=== PATIENT | female | born 1950 | race Caucasian/White ===

== ENCOUNTER 2018-10-14 01:25 | Inpatient (IN) | payer MEDICARE, OTHER ==
[~2018-10-14] VITALS: Ht 149.9 cm; Wt 55.2 kg
[2018-10-14] VITALS (7 sets, daily range): BP systolic 107–154; BP diastolic 60–85
[~2018-10-14 01:25] MED LIST: ASPI-556 PO; ATOR20TA86 PO; CLOZ100T31 PO; GABA-531 PO; OMEP20 PO
[2018-10-14] MEDS ORDERED: IPRATROPIUM BROMIDE 0.5 MG/2.5 ML NEB SOLUTION NEB PRN (07:00)
[2018-10-14] MEDS ORDERED: ONDANSETRON HCL 4 MG/2 ML VIAL IVP PRN (07:00)
[2018-10-14] MEDS ORDERED: HYDROCODONE/ACETAMINOPHEN 5-325 MG TABLET PO PRN (07:00)
[2018-10-14] MEDS ORDERED: MAGNESIUM HYDROXIDE SUSPENSION 30 ML UDCUP PO PRN (07:00)
[2018-10-14] MEDS ORDERED: ALBUTEROL SULFATE 2.5 MG/0.5 ML NEB SOLUTION NEB PRN (07:00)
[2018-10-14] MEDS ORDERED: ACETAMINOPHEN 325 MG TABLET PO PRN (07:00)
[2018-10-14 07:38] LABS: BASOPHILS % (AUTO) 1.1 % (0.0-2.0); EOSINOPHILS % (AUTO) 2.2 % (1.0-6.0); HEMATOCRIT 38.4 % (36-46); HEMOGLOBIN 12.9 g/dL (12.0-16.0); LYMPHOCYTES # (AUTO) 1.9 K/uL (1.0-4.8); MEAN CORPUSCULAR HEMOGLOBIN 31.3 pg (26.0-34.0); MEAN CORPUSCULAR HGB CONC 33.5 G/dL (31.0-37.0); MEAN CORPUSCULAR VOLUME 93 fL (80-100); MONOCYTES # (AUTO) 0.4 K/uL (0.1-1.0); MONOCYTES % (AUTO) 5.9 % (2.0-9.0); NEUTROPHILS # (AUTO) 3.5 K/uL (1.8-7.7); NEUTROPHILS % (AUTO) 58.8 % (40.0-70.0); PLATELET COUNT (AUTO) 239 K/uL (150-450); RED BLOOD CELL COUNT(AUTO) 4.12 MIL/uL (4.00-5.20); RED CELL DISTRIBUTION WIDTH 13.5 % (11.5-14.5)
[2018-10-14 08:21] LABS: BILIRUBIN,TOTAL 0.2 mg/dL (0.1-1.0); CALCIUM, TOTAL 9.4 mg/dL (8.8-10.5); CREATININE 1.52 mg/dL (0.60-1.30); MAGNESIUM 2.2 mg/dL (1.80-2.40); PHOSPHORUS 3.6 mg/dL (2.5-4.9); POTASSIUM 4.4 mmol/L (3.5-5.1); TOTAL PROTEIN, SERUM 6.5 g/dL (6.4-8.2)
[2018-10-14] MEDS: OMEPRAZOLE 20 MG CAPSULE PO SCH ×4 (08:56→21:37)
[2018-10-14] MEDS: ATORVASTATIN CALCIUM 20 MG TABLET PO SCH (08:56)
[2018-10-14] MEDS: FAMOTIDINE 20 MG TABLET PO SCH (08:56)
[2018-10-14] MEDS: GABAPENTIN 300 MG CAPSULE PO SCH ×4 (08:56→21:37)
[2018-10-14] MEDS: ASPIRIN 81 MG EC TABLET PO SCH (08:56)
[2018-10-14] MEDS: HEPARIN SODIUM,PORCINE 5,000 UNITS/ML VIAL SQ SCH ×3 (08:57→21:37)
[2018-10-14] MEDS: DEXTROSE 5%-0.45% SODIUM CHL 1,000 ML IV SCH ×2 (14:47→21:38)
[2018-10-15 04:18] VITALS: BP 104/65
[2018-10-15] MEDS: DEXTROSE 5%-0.45% SODIUM CHL 1,000 ML IV SCH ×3 (05:19→23:09)
[2018-10-15 06:30] LABS: BASOPHILS % (AUTO) 0.7 % (0.0-2.0); EOSINOPHILS % (AUTO) 1.9 % (1.0-6.0); HEMATOCRIT 36.2 % (36-46); LYMPHOCYTES % (AUTO) 31.8 % (22.0-44.0); MEAN CORPUSCULAR HEMOGLOBIN 31.1 pg (26.0-34.0); MEAN CORPUSCULAR HGB CONC 33.2 G/dL (31.0-37.0); MEAN CORPUSCULAR VOLUME 94 fL (80-100); MONOCYTES # (AUTO) 0.4 K/uL (0.1-1.0); MONOCYTES % (AUTO) 6.4 % (2.0-9.0); NEUTROPHILS # (AUTO) 3.6 K/uL (1.8-7.7); NEUTROPHILS % (AUTO) 59.2 % (40.0-70.0); PLATELET COUNT (AUTO) 234 K/uL (150-450); RED BLOOD CELL COUNT(AUTO) 3.88 MIL/uL (4.00-5.20); RED CELL DISTRIBUTION WIDTH 13.3 % (11.5-14.5)
[2018-10-15 06:46] LABS: ALBUMIN 2.7 g/dL (3.4-5.0); BILIRUBIN,TOTAL 0.2 mg/dL (0.1-1.0); CALCIUM, TOTAL 8.9 mg/dL (8.8-10.5); CREATININE 1.56 mg/dL (0.60-1.30); MAGNESIUM 2.1 mg/dL (1.80-2.40); PHOSPHORUS 3.6 mg/dL (2.5-4.9)
[2018-10-15] MEDS: GABAPENTIN 300 MG CAPSULE PO SCH ×4 (08:08→20:09)
[2018-10-15] MEDS: ATORVASTATIN CALCIUM 20 MG TABLET PO SCH (08:08)
[2018-10-15] MEDS: OMEPRAZOLE 20 MG CAPSULE PO SCH ×4 (08:08→20:09)
[2018-10-15] MEDS: HEPARIN SODIUM,PORCINE 5,000 UNITS/ML VIAL SQ SCH ×2 (08:09→20:13)
[2018-10-15] MEDS: FAMOTIDINE 20 MG TABLET PO SCH (08:09)
[2018-10-15] MEDS: ASPIRIN 81 MG EC TABLET PO SCH (08:09)
[2018-10-15 08:16] VITALS: BP 114/58
[2018-10-15 11:44] VITALS: BP 104/51
[2018-10-15 15:38] VITALS: BP 102/57
[2018-10-15 20:12] VITALS: BP 134/78
[2018-10-15 23:25] VITALS: BP 120/64
[2018-10-16 05:15] VITALS: BP 124/74
[2018-10-16 06:03] LABS: CALCIUM, TOTAL 9.1 mg/dL (8.8-10.5); CREATININE 1.5 mg/dL (0.60-1.30); POTASSIUM 4.4 mmol/L (3.5-5.1)
[2018-10-16] MEDS: DEXTROSE 5%-0.45% SODIUM CHL 1,000 ML IV SCH ×2 (06:47→14:47)
[2018-10-16 07:35] VITALS: BP 152/83
[2018-10-16] MEDS: OMEPRAZOLE 20 MG CAPSULE PO SCH ×4 (08:46→20:41)
[2018-10-16] MEDS: ASPIRIN 81 MG EC TABLET PO SCH (08:46)
[2018-10-16] MEDS: GABAPENTIN 300 MG CAPSULE PO SCH ×4 (08:46→20:41)
[2018-10-16] MEDS: FAMOTIDINE 20 MG TABLET PO SCH (08:46)
[2018-10-16] MEDS: ATORVASTATIN CALCIUM 20 MG TABLET PO SCH (08:46)
[2018-10-16] MEDS: HEPARIN SODIUM,PORCINE 5,000 UNITS/ML VIAL SQ SCH ×2 (08:49→20:41)
[2018-10-16 11:10] VITALS: BP 140/63
[2018-10-16 15:15] VITALS: BP 145/73
[2018-10-16 19:47] VITALS: BP 115/56
[2018-10-16 23:40] VITALS: BP 115/69
[2018-10-17 04:59] VITALS: BP 98/65
[2018-10-17 07:48] VITALS: BP 97/63
[2018-10-17] MEDS: OMEPRAZOLE 20 MG CAPSULE PO SCH ×4 (09:06→20:46)
[2018-10-17] MEDS: GABAPENTIN 300 MG CAPSULE PO SCH ×4 (09:06→20:46)
[2018-10-17] MEDS: ATORVASTATIN CALCIUM 20 MG TABLET PO SCH (09:06)
[2018-10-17] MEDS: FAMOTIDINE 20 MG TABLET PO SCH (09:06)
[2018-10-17] MEDS: ASPIRIN 81 MG EC TABLET PO SCH (09:06)
[2018-10-17] MEDS: HEPARIN SODIUM,PORCINE 5,000 UNITS/ML VIAL SQ SCH ×2 (09:06→20:46)
[2018-10-17 11:39] VITALS: BP 143/75
[2018-10-17 15:30] VITALS: BP 122/63
[2018-10-17 20:23] VITALS: BP 145/76
[2018-10-18] VITALS (7 sets, daily range): BP systolic 90–151; BP diastolic 54–78
[2018-10-18] MEDS: GABAPENTIN 300 MG CAPSULE PO SCH ×3 (08:03→16:19)
[2018-10-18] MEDS: ATORVASTATIN CALCIUM 20 MG TABLET PO SCH (08:03)
[2018-10-18] MEDS: FAMOTIDINE 20 MG TABLET PO SCH (08:03)
[2018-10-18] MEDS: ASPIRIN 81 MG EC TABLET PO SCH (08:03)
[2018-10-18] MEDS: HEPARIN SODIUM,PORCINE 5,000 UNITS/ML VIAL SQ SCH ×2 (08:03→20:38)
[2018-10-18] MEDS: OMEPRAZOLE 20 MG CAPSULE PO SCH ×4 (08:03→20:38)
[2018-10-18] MEDS: CloZAPine 100 MG TABLET PO SCH (20:38)
[2018-10-19] VITALS (7 sets, daily range): BP systolic 80–118; BP diastolic 42–63
[2018-10-19] MEDS ORDERED: SODIUM CHLORIDE 0.9% 500 ML IV ONE (05:00)
[2018-10-19] MEDS: GABAPENTIN 300 MG CAPSULE PO SCH ×3 (08:30→17:30)
[2018-10-19] MEDS: HEPARIN SODIUM,PORCINE 5,000 UNITS/ML VIAL SQ SCH ×2 (08:31→21:32)
[2018-10-19] MEDS: FAMOTIDINE 20 MG TABLET PO SCH (08:31)
[2018-10-19] MEDS: ASPIRIN 81 MG EC TABLET PO SCH (08:31)
[2018-10-19] MEDS: OMEPRAZOLE 20 MG CAPSULE PO SCH ×4 (08:31→21:32)
[2018-10-19] MEDS: ATORVASTATIN CALCIUM 20 MG TABLET PO SCH (08:32)
[2018-10-19] MEDS: CloZAPine 100 MG TABLET PO SCH ×2 (08:32→21:32)
[2018-10-20 05:21] VITALS: BP 115/72
[2018-10-20] MEDS: GABAPENTIN 300 MG CAPSULE PO SCH ×3 (06:33→16:46)
[2018-10-20 07:57] VITALS: BP 139/79
[2018-10-20] MEDS: FAMOTIDINE 20 MG TABLET PO SCH (08:36)
[2018-10-20] MEDS: ATORVASTATIN CALCIUM 20 MG TABLET PO SCH (08:36)
[2018-10-20] MEDS: OMEPRAZOLE 20 MG CAPSULE PO SCH ×3 (08:36→16:46)
[2018-10-20] MEDS: ASPIRIN 81 MG EC TABLET PO SCH (08:36)
[2018-10-20] MEDS: CloZAPine 100 MG TABLET PO SCH (08:36)
[2018-10-20 11:37] VITALS: BP 124/69
[2018-10-20 15:08] VITALS: BP 114/66
[2018-10-20] MEDS ORDERED: CLOZ100T31 PO (15:55)
== END 2018-10-20 17:25 | disposition home or self-care (01) | DRG 640 ==
LOC: EDSTATUS 01:49 → 6N 01:59 → 4E 10-19 19:57
PROVIDERS: ADMIT Internal Medicine; ATTEND Internal Medicine
DX: E87.0 Hyperosmolality and hypernatremia (principal); N17.0 Acute kidney failure with tubular necrosis; I12.9 Hypertensive chronic kidney disease with stage 1 through stage 4 chronic kidney disease, or unspecified chronic kidney disease; N18.9 Chronic kidney disease, unspecified; G47.00 Insomnia, unspecified; K59.00 Constipation, unspecified; F41.9 Anxiety disorder, unspecified; F25.1 Schizoaffective disorder, depressive type
CPT/HCPCS: 76770; 83735; 84100; G0378; J1644

== ENCOUNTER 2020-03-20 22:20 | Inpatient (IN) | payer MEDICARE, OTHER ==
[~2020-03-20] VITALS: Ht 162.6 cm; Wt 56.5 kg
[~2020-03-20 22:20] MED LIST changes: +GABA-1181 PO; -GABA-531 PO
[2020-03-20] MEDS ORDERED: AZITHROMYCIN 500 MG/NS 250 ML IV ONE (23:45)
[2020-03-20] MEDS ORDERED: CefTRIAXone 1 GM/DEXTROSE 50 ML IV ONE (23:45)
[2020-03-20] MEDS ORDERED: 0.9% SODIUM CHLORIDE 10 ML SYRINGE IVP PRN (23:45)
[2020-03-21 00:15] LABS: HEMATOCRIT 39.1 % (36-46); HEMOGLOBIN 12.7 g/dL (12.0-16.0); MEAN CORPUSCULAR VOLUME 92 fL (80-100); RED BLOOD CELL COUNT(AUTO) 4.26 MIL/uL (4.00-5.20)
[2020-03-21 00:16] LABS: BASOPHILS % (AUTO) 0.4 % (0.0-2.0); EOSINOPHILS % (AUTO) 1.8 % (1.0-6.0); LYMPHOCYTES % (AUTO) 13.6 % (22.0-44.0); MEAN CORPUSCULAR HEMOGLOBIN 29.9 pg (26.0-34.0); MEAN CORPUSCULAR HGB CONC 32.6 G/dL (31.0-37.0); MONOCYTES # (AUTO) 0.2 K/uL (0.1-1.0); MONOCYTES % (AUTO) 2.2 % (2.0-9.0); NEUTROPHILS # (AUTO) 6.2 K/uL (1.8-7.7); PLATELET COUNT (AUTO) 186 K/uL (150-450); RED CELL DISTRIBUTION WIDTH 13.7 % (11.5-14.5)
[2020-03-21 00:43] LABS: INR 0.9 (0.9-1.1); PROTHROMBIN TIME 9.7 SEC (9.4-11.6)
[2020-03-21 00:48] LABS: CALCIUM, TOTAL 8.8 mg/dL (8.8-10.5); CREATININE 1.6 mg/dL (0.60-1.30); POTASSIUM 4.6 mmol/L (3.5-5.1)
[2020-03-21 00:58] LABS: LACTIC ACID 1.4 mmol/L (0.4-2.0)
[2020-03-21 01:01] LABS: ALBUMIN 3.4 g/dL (3.4-5.0); BILIRUBIN,TOTAL 0.3 mg/dL (0.1-1.0); FREE T4 (FREE THYROXINE) 0.91 ng/dL (0.76-1.46); THYROID STIMULATING HORMONE 1.26 uIU/mL (0.36-3.74); TOTAL PROTEIN, SERUM 7.1 g/dL (6.4-8.2)
[2020-03-21] MEDS ORDERED: DEXTROSE 5%-WATER 1,000 ML IV ONE (04:15)
[2020-03-21 04:18] LABS: COVID AG,FIA SOURCE NASAL SWAB
[2020-03-21 06:17] LABS: CREATININE,URINE RANDOM 11.4 mg/dL (30.0-125.0)
[2020-03-21 06:19] LABS: APPEARANCE,URINE CLEAR (CLEAR); BILIRUBIN,URINE NEGATIVE (NEGATIVE); GLUCOSE, URINE (UA) NEGATIVE (NEGATIVE); KETONES,URINE NEGATIVE (NEGATIVE); LEUKOCYTE ESTERASE ,URINE NEGATIVE (NEGATIVE); NITRATE,URINE NEGATIVE (NEGATIVE); OCCULT BLOOD,URINE NEGATIVE (NEGATIVE); PROTEIN,URINE NEGATIVE (NEGATIVE); UROBILINOGEN,URINE 0.2 mg/dL (<=1.0)
[2020-03-21] MEDS: OMEPRAZOLE 20 MG CAPSULE PO SCH (09:00)
[2020-03-21] MEDS ORDERED: CloZAPine 100 MG TABLET PO SCH (09:00)
[2020-03-21 09:25] VITALS: BP 155/83
[2020-03-21] MEDS ORDERED: ASPI-1111 PO (11:25)
[2020-03-21] MEDS: GABAPENTIN 300 MG CAPSULE PO SCH ×5 (13:00→20:37)
[2020-03-21 15:18] VITALS: BP 141/76
[2020-03-21] MEDS: ATORVASTATIN CALCIUM 20 MG TABLET PO SCH (15:22)
[2020-03-21] MEDS: ASPIRIN 81 MG DR TABLET PO SCH (15:22)
[2020-03-21 19:56] VITALS: BP 118/71
[2020-03-21] MEDS: CefTRIAXone 1 GM/DEXTROSE 50 ML IV SCH (22:24)
[2020-03-22 00:22] VITALS: BP 126/68
[2020-03-22 05:20] VITALS: BP 103/51
[2020-03-22] MEDS: GABAPENTIN 300 MG CAPSULE PO SCH ×4 (07:59→20:35)
[2020-03-22] MEDS: ATORVASTATIN CALCIUM 20 MG TABLET PO SCH (08:00)
[2020-03-22] MEDS: ASPIRIN 81 MG DR TABLET PO SCH (08:00)
[2020-03-22 08:01] VITALS: BP 123/60
[2020-03-22] MEDS: OMEPRAZOLE 20 MG CAPSULE PO SCH (09:00)
[2020-03-22] MEDS: CloZAPine 25 MG RAPDIS TABLET PO SCH (09:50)
[2020-03-22] MEDS ORDERED: DEXTROSE 5%-WATER 500 ML IV ONE (10:00)
[2020-03-22 12:17] VITALS: BP 114/58
[2020-03-22 16:15] VITALS: BP 143/85
[2020-03-22 19:47] VITALS: BP 120/73
[2020-03-22] MEDS: CloZAPine 100 MG RAPDIS TABLET PO SCH (20:35)
[2020-03-22] MEDS: CefTRIAXone 1 GM/DEXTROSE 50 ML IV SCH (23:55)
[2020-03-23 05:20] VITALS: BP 116/60
[2020-03-23 07:37] VITALS: BP 150/66
[2020-03-23 08:11] LABS: BASOPHILS % (AUTO) 0.7 % (0.0-2.0); EOSINOPHILS % (AUTO) 3.8 % (1.0-6.0); HEMATOCRIT 35.7 % (36-46); HEMOGLOBIN 11.7 g/dL (12.0-16.0); LYMPHOCYTES # (AUTO) 1.6 K/uL (1.0-4.8); MEAN CORPUSCULAR HGB CONC 32.8 G/dL (31.0-37.0); MEAN CORPUSCULAR VOLUME 92 fL (80-100); MONOCYTES # (AUTO) 0.5 K/uL (0.1-1.0); MONOCYTES % (AUTO) 10.3 % (2.0-9.0); NEUTROPHILS # (AUTO) 2.9 K/uL (1.8-7.7); NEUTROPHILS % (AUTO) 54.2 % (40.0-70.0); PLATELET COUNT (AUTO) 191 K/uL (150-450); RED CELL DISTRIBUTION WIDTH 13.3 % (11.5-14.5)
[2020-03-23 08:16] LABS: CALCIUM, TOTAL 8.6 mg/dL (8.8-10.5); CREATININE 1.68 mg/dL (0.60-1.30); POTASSIUM 3.8 mmol/L (3.5-5.1)
[2020-03-23] MEDS: GABAPENTIN 300 MG CAPSULE PO SCH ×4 (08:57→21:44)
[2020-03-23] MEDS: ASPIRIN 81 MG DR TABLET PO SCH (08:57)
[2020-03-23] MEDS: ATORVASTATIN CALCIUM 20 MG TABLET PO SCH (08:58)
[2020-03-23] MEDS: OMEPRAZOLE 20 MG CAPSULE PO SCH (08:58)
[2020-03-23] MEDS: CloZAPine 25 MG RAPDIS TABLET PO SCH (08:58)
[2020-03-23] MEDS ORDERED: SODIUM CHLORIDE 0.45% 500 ML IV ONE (09:30)
[2020-03-23 11:45] VITALS: BP 142/58
[2020-03-23 15:44] VITALS: BP 126/62
[2020-03-23 21:42] VITALS: BP 110/65
[2020-03-23] MEDS: CloZAPine 100 MG RAPDIS TABLET PO SCH (21:44)
[2020-03-24] MEDS: CefTRIAXone 1 GM/DEXTROSE 50 ML IV SCH (00:14)
[2020-03-24 00:16] VITALS: BP 122/65
[2020-03-24 06:08] VITALS: BP 129/77
[2020-03-24 06:48] LABS: BASOPHILS % (AUTO) 0.5 % (0.0-2.0); EOSINOPHILS % (AUTO) 3.5 % (1.0-6.0); HEMATOCRIT 38.6 % (36-46); HEMOGLOBIN 12.8 g/dL (12.0-16.0); LYMPHOCYTES # (AUTO) 1.7 K/uL (1.0-4.8); LYMPHOCYTES % (AUTO) 28.5 % (22.0-44.0); MEAN CORPUSCULAR HEMOGLOBIN 30.3 pg (26.0-34.0); MEAN CORPUSCULAR HGB CONC 33.1 G/dL (31.0-37.0); MEAN CORPUSCULAR VOLUME 92 fL (80-100); MONOCYTES # (AUTO) 0.5 K/uL (0.1-1.0); MONOCYTES % (AUTO) 7.6 % (2.0-9.0); NEUTROPHILS # (AUTO) 3.6 K/uL (1.8-7.7); NEUTROPHILS % (AUTO) 59.9 % (40.0-70.0); PLATELET COUNT (AUTO) 209 K/uL (150-450); RED BLOOD CELL COUNT(AUTO) 4.21 MIL/uL (4.00-5.20); RED CELL DISTRIBUTION WIDTH 13.6 % (11.5-14.5)
[2020-03-24 07:23] LABS: CALCIUM, TOTAL 9.1 mg/dL (8.8-10.5); CREATININE 1.49 mg/dL (0.60-1.30); POTASSIUM 4.5 mmol/L (3.5-5.1)
[2020-03-24 08:42] VITALS: BP 142/92
[2020-03-24] MEDS: ASPIRIN 81 MG DR TABLET PO SCH (09:03)
[2020-03-24] MEDS: OMEPRAZOLE 20 MG CAPSULE PO SCH (09:03)
[2020-03-24] MEDS: GABAPENTIN 300 MG CAPSULE PO SCH ×3 (09:03→16:26)
[2020-03-24] MEDS: CloZAPine 25 MG RAPDIS TABLET PO SCH (09:03)
[2020-03-24] MEDS: ATORVASTATIN CALCIUM 20 MG TABLET PO SCH (09:03)
== END 2020-03-24 19:15 | DRG 682 ==
LOC: EMS 22:20 → 5N 03-21 00:35 → 6N 03-23 18:40
PROVIDERS: ADMIT Internal Medicine; ATTEND Internal Medicine
DX: N17.9 Acute kidney failure, unspecified (principal); G93.41 Metabolic encephalopathy; J18.9 Pneumonia, unspecified organism; E43 Unspecified severe protein-calorie malnutrition; G92 Toxic encephalopathy; E87.0 Hyperosmolality and hypernatremia; F20.1 Disorganized schizophrenia; E03.9 Hypothyroidism, unspecified; F41.9 Anxiety disorder, unspecified; I12.9 Hypertensive chronic kidney disease with stage 1 through stage 4 chronic kidney disease, or unspecified chronic kidney disease; K21.9 Gastro-esophageal reflux disease without esophagitis; N18.30 Chronic kidney disease, stage 3 unspecified; F31.9 Bipolar disorder, unspecified; Z82.49 Family history of ischemic heart disease and other diseases of the circulatory system; Z88.0 Allergy status to penicillin; D70.9 Neutropenia, unspecified; R13.10 Dysphagia, unspecified; Z68.21 Body mass index [BMI] 21.0-21.9, adult; Z20.822 Contact with and (suspected) exposure to COVID-19
CPT/HCPCS: 70450; 71250; 82570; 83605; 84145; 84300; 84439; 84443; 87040; 87081; 87426; 93005; 97116; 97162; J0456; J0696; J7060; 36415-L1; 36415-TC; 71045-TC; 81003-TC; U0003

== ENCOUNTER 2023-02-18 13:06 | Emergency (ER) | payer MEDICARE, OTHER ==
[~2023-02-18] VITALS: Ht 152.4 cm; Wt 59.1 kg
[~2023-02-18 13:06] MED LIST changes: +ASPI-1444 PO; -ASPI-556 PO; +ATOR20TA PO; -ATOR20TA86 PO; +CLOZ100T11 PO; -CLOZ100T31 PO
[2023-02-18 13:57] LABS: HEMATOCRIT 33.9 % (36-46); HEMOGLOBIN 11.5 g/dL (12.0-16.0); MEAN CORPUSCULAR HEMOGLOBIN 33.5 pg (26.0-34.0); MEAN CORPUSCULAR HGB CONC 33.8 G/dL (31.0-37.0); MEAN CORPUSCULAR VOLUME 99 fL (80-100); PLATELET COUNT (AUTO) 197 K/uL (150-450); RED BLOOD CELL COUNT(AUTO) 3.42 MIL/uL (4.00-5.20); RED CELL DISTRIBUTION WIDTH 14.5 % (11.5-14.5); WHITE BLOOD COUNT (AUTO) 9.9 K/uL (4.5-11.0)
[2023-02-18 14:07] LABS: CALCIUM, TOTAL 9.5 mg/dL (8.8-10.5); CREATININE 1.61 mg/dL (0.60-1.30); POTASSIUM 4.3 mmol/L (3.5-5.1)
[2023-02-18 14:12] LABS: BILIRUBIN,TOTAL 0.5 mg/dL (0.1-1.0); MAGNESIUM 2.3 mg/dL (1.80-2.40); PHOSPHORUS 4.8 mg/dL (2.5-4.9); TOTAL PROTEIN, SERUM 6.5 g/dL (6.4-8.2)
[2023-02-18 14:31] LABS: BAND NEUTROPHILS % (MANUAL) 2 % (0-5); LYMPHOCYTES % (MANUAL) 33 % (22-44); MONOCYTES % (MANUAL) 1 % (2-9); RBC MORPHOLOGY COMMENT NORMAL RBC MORPH; SEGMENTED NEUTROPHILS % 64 % (40-70); TOTAL CELLS COUNTED 100
[2023-02-18 15:15] VITALS: TEMP 98
[2023-02-18] MEDS ORDERED: SODIUM CHLORIDE 0.9% 1,000 ML IV ONE (16:15)
[2023-02-18 16:37] LABS: TROPONIN I-HIGH SENSITIVITY 10 ng/L (<51)
[2023-02-18 22:30] VITALS: BP 143/77; PULSE 76; RESP 15
== END 2023-02-18 23:53 ==
LOC: EMS 13:53
DX: E87.8 Other disorders of electrolyte and fluid balance, not elsewhere classified (principal); E86.0 Dehydration; F41.9 Anxiety disorder, unspecified; F31.9 Bipolar disorder, unspecified; I10 Essential (primary) hypertension; E03.9 Hypothyroidism, unspecified; F20.9 Schizophrenia, unspecified; F03.90 Unspecified dementia, unspecified severity, without behavioral disturbance, psychotic disturbance, mood disturbance, and anxiety; Z88.0 Allergy status to penicillin
CPT/HCPCS: 99284; 96361; 96360; 80053; 83690; 83735; 84100; 84484; 85025; 36415; 93005; J7030